=== PATIENT | female | born 1965 | race Caucasian/White ===

== ENCOUNTER 2019-07-30 16:22 | Emergency (ER) | payer MEDICAID, SELFPAY ==
[2019-07-30 16:58] VITALS: BP 146/86; PULSE 60; RESP 18; TEMP 36.7; O2SAT 96; BMI 28.3
[2019-07-30 18:31] VITALS: BP 131/88; PULSE 50; RESP 18; TEMP 36.7; O2SAT 95
--- NOTE | 2019-07-30 18:34 | XR_ITS ---
WS: [id number] Portable AP upright chest, 07/30/2019 Clinical Data: cough, short of breath Comparison: None. Findings: No nodules, masses or effusions are seen. The heart is normal. The pulmonary vascularity is not increased. No pneumonia or pneumothorax is seen. The aortic arch and descending aorta show tortu osity. XR/XR chest 1V portable [id number] Impression: Atherosclerosis.
--- NOTE | 2019-07-30 18:38 | W.ED.URI ---
HPI - URI/Sore Throat General: Chief Complaint: Upper Respiratory Infection Stated Complaint: cough, congestion Time Seen by Provider: 07/30/19 18:18 History of Present Illness: HPI Narrative: Patient comes in today with one-week history of cough and increasing shortness of breath. Patient is a smoker of tobacco. Patient reports increased congestion and difficulty lying down at night. Patient appears mildly unwell. Patient appears in no acute distress. Patient appears in no pain. Review of Systems General: Reports: 10 or more systems reviewed and unremarkable except in HPI and below Resp: Reports: non-productive cough PFSH ED PFSH: Statuses (acute, chronic, etc) shown below reflect problem list status as previously entered and may not be historically accurate Social History Smoking and tobacco status: current every day smoker Physical Exam Const: COMMON NORMALS: no apparent distress and oriented x3 GENERAL APPEARANCE: cooperative HENMT: COMMON NORMALS: normocephalic, external ears normal, EAC's normal, TM's normal bilaterally and external nose normal HEAD & SCALP: normal to inspection and normocephalic FACE & SINUS: normal facial exam NOSE: external nose normal GENERAL EAR: hearing not grossly impaired EXTERNAL EAR: Yes external ears normal EXTERNAL AUDITORY CANAL: EAC's normal TYMPANIC MEMBRANE: TM's normal bilaterally MOUTH: oral and palatal mucosa normal THROAT: posterior oropharynx normal Eye: COMMON NORMALS: PERRL and EOMs intact bilaterally PUPIL: Yes PERRL Neck/C-Spine: COMMON NORMALS: full ROM and no lymphadenopathy Lymph: LYMPHATIC: no lymphedema noted Chest: COMMONS NORMALS: inspection of chest normal and palpation of chest normal Resp: COMMON NORMALS: normal respiratory effort AUSCULTATION: wheezes scattered wheezes and throughout Cardio: COMMON NORMALS: regular rate and regular rhythm RATE: regular rate RHYTHM: regular rhythm GI: COMMON NORMALS: normal to inspection, nondistended, normoactive bowel sounds and non-tender : COMMON NORMALS: Yes no CVA tenderness BLADDER/KIDNEY EXAM: Yes no CVA tenderness Back/Pelvis: COMMON NORMALS: no CVA tenderness and thoracic and lumbar spine normal to inspection Extremity: COMMON NORMALS: normal to inspection GENERAL: No edema Neuro: COMMON NORMALS: oriented x3, moves all extremities and no focal motor deficits Psych: COMMON NORMALS: mental status grossly normal and cooperative Skin: COMMON NORMALS: no rashes or lesions noted GENERAL SKIN EXAM: no rashes or lesions noted Course Vital Signs: Vital signs: Vital Signs Temperature 98.1 F 07/30/19 19:32 Pulse Rate 45 L 07/30/19 19:32 Respiratory Rate 16 07/30/19 19:32 Blood Pressure 144/88 07/30/19 19:32 Pulse Oximetry 94 07/30/19 19:32 MDM - URI/Sore Throat MDM Narrative: Medical decision making narrative: Patient comes in today for complaints of cough and congestion for 5 days with increasing shortness of breath. On exam we have wheezing throughout all lung rod and and frequent nonproductive cough. Differential diagnosis includes pneumonia, acute bronchitis, COPD exacerbation, asthma. Chest x-rays noted no obvious infiltrates. Patient was treated with antibiotic and steroid. Patient was encouraged to stop smoking. Patient was given inhalation of albuterol for persistent wheezing, noted improvement post inhalation. Discharge Plan Discharge Patient Disposition: Home, Self-Care Clinical Impression: Bronchitis Condition: Stable Prescriptions: New prednisone 20 mg tablet 20 mg PO DAILY Qty: 7 RF: 0 doxycycline hyclate 100 mg capsule 100 mg PO BID Qty: 20 RF: 0 No Action atenolol 25 mg tablet RF: 0 ProAir HFA 90 mcg/actuation HFA aerosol inhaler INHALATION RF: 0 methadone 10 mg/mL Concentrate RF: 0 Discharge Orders: Discharge Order (Routine); Ordered 07/30/19 Ordered By: Marcio Florence Referrals: Kostas Leo MD [Primary Care Provider] - Discharge Diet: Usual diet Discharge Activity: Increase activity as tolerated Patient Instructions: Acute Bronchitis (ED) Activity Restrictions/Additional Instructions: Stop smoking Continue with Pro-Air inhaler use it routinely every four hours while awake for the next 3 days Return to ER for worsening shortness of breath, or high fever Follow-up with primary care in one week for recheck Coding Level of Care Code 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
[2019-07-30] MEDS: dexamethasone 10 mg/mL INJ IM (18:59)
[2019-07-30] MEDS: doxycycline 100 mg Tablet PO (19:02)
[2019-07-30 19:32] VITALS: BP 144/88; PULSE 45; RESP 16; TEMP 36.7; O2SAT 94
[2019-07-30] MEDS: albuterol 8 gm MDI 2 PUFF INHALATION (19:36)
[2019-07-30 19:37] VITALS: PULSE 45; RESP 20; O2SAT 96
== END 2019-07-30 19:38 | disposition home or self-care (01) ==
PROVIDERS: Emergency Provider Nurse Practitioner Family; Family Provider Family Medicine; PCP Family Medicine
DX: J40 Bronchitis, not specified as acute or chronic (principal); F17.210 Nicotine dependence, cigarettes, uncomplicated
CPT/HCPCS: 71045; 94640; 96372; 99281; 99283; J1100; J3535

== ENCOUNTER 2021-06-02 14:47 | Emergency (ER) | payer MEDICAID, SELFPAY ==
[2021-06-02 15:16] VITALS: BP 135/73; PULSE 85; RESP 16; TEMP 36.7; O2SAT 93
--- NOTE | 2021-06-02 15:18 | XR_ITS ---
WS: [id number] Right shoulder, 3 views, 06/02/2021 Clinical Data: shoulder pain Comparison: None. Findings: No fractures or dislocations are seen. The AC joint is normal. The adjacent right clavicle, right sca pula and ribs are normal. The soft tissues are unremarkable. XR/XR shoulder RT min 2V* [id number] Impression: Negative right shoulder.
[2021-06-02] MEDS: acetaminophen 500 mg Tablet 1000 MG PO (16:05)
[2021-06-02] MEDS: ketorolac 30 mg/mL INJ IM (16:06)
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
== END 2021-06-02 18:04 | disposition home or self-care (01) ==
PROVIDERS: Emergency Provider Physician Assistant
DX: S30.1XXA Contusion of abdominal wall, initial encounter (principal); F17.210 Nicotine dependence, cigarettes, uncomplicated; V89.2XXA Person injured in unspecified motor-vehicle accident, traffic, initial encounter
CPT/HCPCS: 71046; 73030; 74176; 96372; 99283; J1885

== ENCOUNTER 2022-04-13 14:35 | Outpatient (CLI) | payer MEDICAID, SELFPAY ==
--- NOTE | 2022-04-13 | CT_ITS ---
WS: [id number] LDCT LUNG CANCER SCREENING HISTORY: NICOTINE DEPENDENCE TECHNIQUE: Axial imaging performed from the apices to 1 cm below the costophrenic angles. Coronal and sagittal reformats are submitted with axial MIP series. All CT scans at [facility] use at least one of these dose optimization techniques: automated exposure control; mA and/or kV adjustment per patient size (includes targeted exams where dose is matched to clinical indication); or iterativ e reconstruction. DLP: 77.21 mGy.cm DIvol: Mean CTDIvol: 1.60 (mGy) COMPARISON: None available. Diagnostic quality: Satisfactory Lung Nodules: No pulmonary nodules or endobronchial lesions. Lungs: Mild hyperexpansion from emphysema. No pneumonia. No pleural effusion. Heart: Normal size heart. No pericardial effusion. Other findings: Enlarged RIGHT thyroid. RIGHT thyroid extends substernal measuring 3.7 x 4.4 cm. Mild mass effect upon the trachea with LEFT midline shift. Normal size thoracic aorta. Normal size pulmon carole artery. Small hiatal hernia. No adrenal mass. Mild increase in thoracic kyphosis. CT/CT lung screening [id number] IMPRESSION: LUNG-RADS: 1S-Negative with Significant Findings FOLLOW UP: 12 Month: Continue annual screening with LDCT OTHER FINDINGS (S MODIFIER): Enlarged substernal thyroid causing deviation of t he trachea to the LEFT. Recommend ultrasound thyroid.
== END 2022-04-13 14:36 | disposition home or self-care (01) ==
LOC: RAD 14:35
PROVIDERS: Visit Provider Physician Assistant
DX: Z12.2 Encounter for screening for malignant neoplasm of respiratory organs (principal); F17.210 Nicotine dependence, cigarettes, uncomplicated
CPT/HCPCS: 71271

== ENCOUNTER 2022-11-21 21:57 | Emergency (ER) | payer MEDICAID, SELFPAY ==
[2022-11-21 22:02] VITALS: BP 137/92; PULSE 89; RESP 16; TEMP 36.6; O2SAT 95; BMI 28.3
--- NOTE | 2022-11-21 22:05 | XRR_ITS ---
PROCEDURE INFORMATION: Exam: XR Chest Exam date and time: 11/21/2022 10:10 PM Age: 57 years old Clinical indication: Pain; Chest pressure; Additional info: Cp TECHNIQUE: Imaging protocol: Radiologic exam of the chest. Views: 1 view. COMPARISON: CT lung screening [id number] 04/13/2022 3:01 PM FINDINGS: Lungs: Lungs are clear bilaterally. Pleural spaces: No pleural effusion. No pneumothorax. Heart/Mediastinum: Stable mild enlargement of the cardiac silhouette. Mediastinal contours are unremarkable. Vasculature: Stable vascular calcifications in the aorta. Bones/joints: Unremarkable for age. XR/XR chest 1V portable [id number] IMPRESSION: 1. No acute cardiopulmonary process. 2. Incidental/nonacute findings are listed in the report.
--- NOTE | 2022-11-21 22:07 | W.ED.GENADLT ---
HPI - General Adult General: Chief complaint: Extremity Problem,Nontraumatic Stated complaint: Left Arm Pain Time Seen by Provider: 11/21/22 22:02 Source: patient Mode of arrival: ambulatory Limitations: no limitations History of Present Illness: 57-year-old female states been having left arm pain for a week states been a sharp pain running down her left arm denies any pain with movement or palpation she had some paresthesias. Denies any chest pain denies any shortness of breath denies any nausea denies any injuries. She denies any worsening improving factors. Associated symptoms: Deny chest pain, dyspnea, headache(s), nausea, rash or vomiting Review of Systems Const: Denies: fever(s), chills, body aches or change in appetite ENMT: Denies: throat pain or dental pain Card: Denies: chest pain Resp: Denies: dyspnea GI: Denies: abdominal pain, nausea, vomiting or diarrhea : Denies: dysuria Musc: Reports: extremity pain Skin/Breast: Denies: rash Neuro: Denies: headache(s) PFSH ED PFSH: Medical History Psychiatric care Social History Smoking and tobacco status: current every day smoker Physical Exam Const: COMMON NORMALS: no acute distress, patient oriented x3 and healthy appearing Eye: COMMON NORMALS: Equal, round and reactive pupils present and EOMs intact bilaterally PUPIL: Yes Equal, round and reactive pupils present Neck/C-Spine: COMMON NORMALS: full ROM and supple Chest: COMMONS NORMALS: normal inspection of the chest and normal palpation of entire chest wall Resp: COMMON NORMALS: normal respiratory effort, No retractions, No use of accessory muscles and clear to auscultation bilaterally AUSCULTATION: clear to auscultation bilaterally Cardio: COMMON NORMALS: regular rate, regular rhythm and No murmurs present (Cardio) RATE: regular rate RHYTHM: regular rhythm GI: COMMON NORMALS: Normal to inspection, nondistended, normoactive bowel sounds present, Soft to palpation, non-tender and no masses PALPATION: Yes Soft to palpation Extremity: COMMON NORMALS: normal to inspection and full ROM Neuro: COMMON NORMALS: patient oriented x3, moves all extremities and no focal motor deficits Psych: COMMON NORMALS: mental status grossly normal, Normal thought process present and cooperative THOUGHT PROCESS: Normal thought process present Skin: COMMON NORMALS: no rashes or lesions noted and no wounds GENERAL SKIN EXAM: no rashes or lesions noted Course Vital Signs: Vital signs: Vital Signs Temperature 97.8 F 11/21/22 22:02 Pulse Rate 73 11/21/22 22:08 Respiratory Rate 16 11/21/22 22:08 Blood Pressure 137/92 11/21/22 22:08 Pulse Oximetry 93 11/21/22 22:08 Oxygen Delivery Me thod Room Air 11/21/22 22:08 MDM - General Adult Medical Decision Making Patient presents with arm pain is very atypical in nature she is well-appearing her exam is benign troponins normal no signs of acute coronary syndrome she is stable for discharge we will place her on Naprosyn she is to follow-up with PCP and return if worsening. Medical Records I reviewed the patient's medical records. Lab Data I reviewed the patient's lab results. 11/21/22 22:26 11/21/22 22:26 Radiology Impressions Chest X-Ray 11/21/22 22: IMPRESSION: 1. No acute cardiopulmonary process. 2. Incidental/nonacute findings are listed in the report. Laboratory Results WBC 7.0 10^3/uL (4.0-10.0) 11/21/22 22: RBC 4.35 10^6/uL (4.1-5.3) 11/21/22 22: Hgb 13.1 g/dL (11.5-15.3) 11/21/22 22: Hct 40.4 % (37.0-47.0) 11/21/22 22: MCV 92.9 fl (81-99) 11/21/22 22: MCH 30.1 pg (28.0-34.0) 11/21/22 22: MCHC 32.4 g/dL (30.0-36.0) 11/21/22 22: RDW 12.7 % (12.1-15.1) 11/21/22 22: Plt Count 243 10^3/cmm (130-400) 11/21/22 22: MPV 9.7 fL (7.4-10.4) 11/21/22 22: Neut % (Auto) 64.6 % 11/21/22 22: Lymph % (Auto) 26.6 % 11/21/22 22: [place] % (Auto) 6.1 % 11/21/22 22: Eos % (Auto) 2.0 % 11/21/22 22: Baso % (Auto) 0.6 % 11/21/22 22: Neut # (Auto) 4.54 10^3/uL (1.8-7.7) 11/21/22 22: Lymph # (Auto) 1.9 10^3/uL (0.8-4.8) 11/21/22 22: [place] # (Auto) 0.4 10^3/uL (0.2-0.9) 11/21/22 22: Eos # (Auto) 0.1 10^3/uL (0.0-0.8) 11/21/22: Baso # (Auto) 0.0 10^3/uL (0.0-0.1) 11/21/22 22: Nucleated RBC % (auto) 0 % 11/21/22 22: Nucleated RBCs # 0.0 /100WBC 11/21/22 22: Sodium 140 mmol/L (136-145) 11/21/22 22: Potassium 3.8 mmol/L (3.5-5.1) 11/21/22 22: Chloride 95 mmol/L (98-107) L 11/21/22: Carbon Dioxide 34 mmol/L (22-29) H 11/21/22 22: Anion Gap 14.8 (5-19) 11/21/22 22: BUN 14 mg/dL (6-20) 11/21/22 22: Creatinine 0.8 mg/dL (0.5-0.9) 11/21/22 22: GFR Calculation 73.9 mL/min (90-130) L 11/21/22 22: Glucose 79 mg/dL (65-115) 11/21/22 22: Calculated Osmolality 289 mOsm/kg (285-295) 11/21/22: Calcium 9.4 mg/dL (8.5-10.5) 05/24/23 22:26 Total Bilirubin 0.6 mg/dL (0.15-1.2) 11/21/22 22:26 AST 18 U/L (0-32) 11/21/22 22:26 ALT 12 U/L (0-33) 11/21/22 22:26 Alkaline Phosphatase 97 U/L (35-105) 11/21/22 22:26 Troponin T Baseline 6 ng/L (0-10) 11/21/22 22:26 Total Protein 8.2 g/dL (6.6-8.7) 11/21/22 22: Albumin 4.5 g/dL (3.5-5.2) 11/21/22 22: Globulin 3.7 g/dL (1.3-4.6) 11/21/22 22:26 EKG Data EKG 1: I personally reviewed and interpreted this EKG as follows: EKG interpretation date: 11/21/22 EKG interpretation time: 22:09 Interpretation: nsr hr [address] or t wave abnormalities qrs 90 qtc 414 Computer generated interpretation: Chest X-Ray 11/21/22 22:05 IMPRESSION: 1. No acute cardiopulmonary process. 2. Incidental/nonacute findings are listed in the report. 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
[2022-11-21 22:08] VITALS: BP 137/92; PULSE 73; RESP 16; O2SAT 93
--- NOTE | 2022-11-21 22:09 | ECG_ITS ---
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 Measurements Intervals [place] Rate: 78 P: 60 OR: 148 QRS: 23 QRSD: 90 T: 54 QT: 381 QTc: 434 Interpretive Statements SINUS RHYTHM No previous ECG available for comparison Electronically Signed On 11-21-2022 22:26:11 CDT by Bernard Yoon M.D. [id number]
[2022-11-21 22:31] LABS: Basophils % 0.6 %; Eosinophils # 0.1 10^3/uL (0.0-0.8); Hematocrit 40.4 % (37.0-47.0); Hemoglobin 13.1 g/dL (11.5-15.3); Lymphocytes # 1.9 10^3/uL (0.8-4.8); Lymphocytes % 26.6 %; Mean Corpuscular HGB Conc 32.4 g/dL (30.0-36.0); Mean Corpuscular Hemoglobin 30.1 pg (28.0-34.0); Mean Corpuscular Volume 92.9 fl (81-99); Mean Platelet Volume 9.7 fL (7.4-10.4); Monocytes # 0.4 10^3/uL (0.2-0.9); Monocytes % 6.1 %; Neutrophils # 4.54 10^3/uL (1.8-7.7); Neutrophils % 64.6 %; Nucleated Red Blood Cells % 0 %; Platelet Count 243 10^3/cmm (130-400); Red Blood Count 4.35 10^6/uL (4.1-5.3); Red Cell Distribution Width 12.7 % (12.1-15.1)
[2022-11-21 22:53] LABS: Alanine Aminotransferase 12 U/L (0-33); Albumin Level 4.5 g/dL (3.5-5.2); Alkaline Phosphatase 97 U/L (35-105); Anion Gap 14.8 (5-19); Aspartate Amino Transferase 18 U/L (0-32); Blood Urea Nitrogen 14 mg/dL (6-20); Calcium 9.4 mg/dL (8.5-10.5); Carbon Dioxide 34 mmol/L (22-29); Chloride 95 mmol/L (98-107); Globulin 3.7 g/dL (1.3-4.6); Glomerular Filtration Rate 73.9 mL/min (90-130); Glucose 79 mg/dL (65-115); Osmolality Calculated 289 mOsm/kg (285-295); Potassium 3.8 mmol/L (3.5-5.1); Sodium 140 mmol/L (136-145); Total Bilirubin 0.6 mg/dL (0.15-1.2); Total Protein 8.2 g/dL (6.6-8.7); Troponin(5th) Baseline 6 ng/L (0-10)
[2022-11-21 23:08] VITALS: BP 137/66; PULSE 78; RESP 16; O2SAT 89
--- NOTE | 2022-11-29 15:16 | DCPLANNER ---
TCM called patient due to no primary care physician - no answer at this time.
== END 2022-11-21 23:29 | disposition home or self-care (01) ==
PROVIDERS: Emergency Provider Emergency Medicine
DX: M79.602 Pain in left arm (principal); F17.210 Nicotine dependence, cigarettes, uncomplicated
CPT/HCPCS: 71045; 80053; 84484; 85025; 93005; 99285

== ENCOUNTER 2023-07-01 11:06 | Emergency (ER) | payer MEDICAID, SELFPAY ==
[2023-07-01 11:26] VITALS: BP 158/103; PULSE 77; RESP 18; TEMP 36.9; O2SAT 92; BMI 29.2
[2023-07-01 12:12] VITALS: BP 177/109; PULSE 70; RESP 16; O2SAT 92
--- NOTE | 2023-07-01 12:55 | ED_ITS ---
HPI - General Adult General: Chief complaint: Upper Respiratory Infection Stated complaint: sore throat Time Seen by Provider: 07/01/23 12:03 History of Present Illness: This is a pleasant 57-year-old female who presents to the emergency department complaining of sore throat starting 1 day ago. She says it feels like razor blades when she swallows. She reports she has chronic rhinorrhea and congestion with postnasal drip but the sore throat is new. It hurts to talk or even swallow. She denies any known fever. Denies sweats, chills, rashes. She has had some mild myalgias and arthralgias. She has a chronic cough whenever she has postnasal drip but states this has not changed. Denies nausea, vomiting, diarrhea, or headache. Patient was noted to be hypertensive and she admits that she is out of her lisinopril/hydrochlorothiazide. Associated symptoms: Deny chest pain, dyspnea, headache(s), nausea, rash, syncope or vomiting Review of Systems General: Reports: 10 or more systems reviewed and unremarkable except in HPI and below Const: Denies: fever(s) or chills Eyes: Denies: change in vision ENMT: Reports: uvular edema (mild edema suspected) Card: Denies: chest pain, edema or syncope Resp: Denies: dyspnea or productive cough GI: Denies: abdominal pain, nausea, vomiting or diarrhea : Denies: flank pain, dysuria or urinary frequency Musc: Denies: back pain, extremity pain or extremity swelling Skin/Breast: Denies: rash or erythema Neuro: Denies: headache(s), numbness in extremities, weakness in extremities, lack of coordination or difficulty walking PFS ED PFSH: Medical History Psychiatric care Social History Smoking and tobacco/nicotine status: current every day tobacco/nicotine user Physical Exam Const: COMMON NORMALS: no limitations, alert and well nourished EXAM LIMITATIONS: no altered mental status HENMT: COMMON NORMALS: normocephalic, atraumatic, external ears normal and Normal external nose present HEAD & SCALP: normocephalic and atraumatic NOSE: Normal external nose present, Normal nares present and No nasal discharge present EXTERNAL EAR: Yes external ears normal MOUTH: no muffled voice TEETH & GINGIVA: Yes edentulous THROAT: uvula midline, abnormal tonsil, posterior oropharynx abnormal and uvular edema (mild edema suspected); no peritonsillar mass, no postnasal drainage and uvula not laterally displaced OTHER: Bilateral tonsillar exudates, suspected mild edema of the uvula. No uvular displacement. No signs of peritonsillar abscess. Patient's phonation causes her pain. She can flex and extend her neck without limitation. There is tender right anterior cervical adenopathy. Sublingual space is normal. There is erythema of the posterior pharynx. No identified petechiae of the soft palate. Mucous membranes are relatively dry. Patient admits she has not been drinking very much due to pain. Eye: COMMON NORMALS: EOMs intact bilaterally, conjunctivae normal and no scle ral icterus CONJUNCTIVA: Yes conjunctivae normal Neck/C-Spine: COMMON NORMALS: no JVD GENERAL: Yes normal visual inspection and Yes trachea midline Resp: COMMON NORMALS: normal respiratory effort, No use of accessory muscles and clear to auscultation bilaterally AUSCULTATION: clear to auscultation bilaterally Cardio: COMMON NORMALS: no JVD, regular rate and regular rhythm RATE: regular rate RHYTHM: regular rhythm GI: COMMON NORMALS: Soft to palpation PALPATION: Yes Soft to palpation and No Guarding due to palpation present (GI) Extremity: COMMON NORMALS: normal to inspection Neuro: COMMON NORMALS: moves all extremities, no focal motor deficits and no sensory deficits noted SENSORIUM/ORIENTATION: Yes alert SPEECH: speech normal Psych: COMMON NORMALS: mental status grossly normal, Normal thought process present, cooperative, normal affect and speech normal SPEECH: Yes normal speech THOUGHT PROCESS: Normal thought process present Skin: COMMON NORMALS: no rashes or lesions noted, turgor normal and no jaundice GENERAL SKIN EXAM: no rashes or lesions noted and turgor normal Course Vital Signs: Vital signs: Vital Signs Temperature 98.4 F 07/01/23 11:26 Pulse Rate 70 07/01/23 12:12 Respiratory Rate 16 07/01/23 12:12 Blood Pressure 177/109 07/01/23 12:12 Pulse Oximetry 92 07/01/23 12:12 Oxygen Delivery Me thod Room Air 07/01/23 11:26 MDM - General Adult Medical Decision Making Patient has exudative bilateral tonsillitis. She has a history of strep pharyngitis. No signs of peritonsillar abscess today. Lower suspicion for deep space infection. Lower suspicion for tracheitis. Plan is to obtain rapid strep test, treat with clindamycin (patient reports she is allergic to penicillin although has been a very long time and does not know the reaction), viscous lidocaine for discomfort, and patient requested steroid shot as it has helped with sore throat inflammation in the past. We will also refill her blood pressure medication as she is out and her blood pressure is elevated. No signs of hypertensive emergency. Update Patient does have strep pharyngitis. She will be treated with clindamycin. I will also refill hydrochlorothiazide with lisinopril for her primary hype rtension. Lab Data Laboratory Results Group A Strep Rapid Positive (Negative) H 07/01/23 13:11 No radiology studies performed this visit Discharge Plan Discharge Patient Disposition: Home Clinical Impression: Pharyngitis Qualifiers: Pharyngitis/tonsillitis etiology: streptococcus Qualified Code(s): J02.0 - Streptococcal pharyngitis Hypertension Qualifiers: Hypertension type: primary hypertension Qualified Code(s): I10 - Essential (primary) hypertension Condition: Stable Prescriptions: New lisinopril-hydrochlorothiazide 20-12.5 mg tablet 1 tab PO DAILY Qty: 30 3RF clindamycin HCl 300 mg capsule 300 mg PO BID 7 Days Qty: 14 0RF Discontinued lisinopril-hydrochlorothiazide 20-12.5 mg tablet 1 tab PO DAILY No Action ProAir HFA 90 mcg/actuation HFA aerosol inhaler INHALATION methadone 10 mg/mL Concentrate Naprosyn 500 mg tablet 500 mg PO BID PRN (Reason: pain) Qty: 20 0RF Discharge Orders: Discharge ED (Routine); Ordered 07/01/23 Ordered By: Sohail Valenzuela Discharge Diet: Advance as tolerated Discharge Activity: Resume usual activity Patient Instructions: Strep Throat (ED), Pain Management Activity Restrictions/Additional Instructions: Take antibiotics as directed. Take a probiotic pill or yogurt for the next 2 months. You may use Cepacol sore throat lozenges for pain control. Make sure to get the type that have benzocaine in them. This will help numb up your throat. Follow the package instructions. These are available [id number]. Return to the emergency department if you are not getting better, you find it hard to breathe, you are unable to swallow secretions, you have high fever, confusion, neck stiffness, or other worsening symptoms. 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
[2023-07-01] MEDS: clindamycin 150 mg Capsule 300 MG PO (13:02)
[2023-07-01] MEDS: lidocaine 2% viscous 15 mL UDC 10 ML MUCOUS MEM (13:03)
[2023-07-01] MEDS: dexamethasone 10 mg/mL INJ IM (13:03)
[2023-07-01 13:40] LABS: Rapid Strep A Test Positive (Negative)
== END 2023-07-01 14:28 | disposition home or self-care (01) ==
PROVIDERS: Emergency Provider Emergency Medicine
DX: J02.0 Streptococcal pharyngitis (principal); I10 Essential (primary) hypertension; Z72.0 Tobacco use
CPT/HCPCS: 87880; 96372; 99284; J1100